=== PATIENT | male | born 1950 | race Caucasian/White ===

== ENCOUNTER 2024-12-31 20:53 | Emergency (ER) | payer MEDICARE, OTHER, SELFPAY ==
[2024-12-31 21:02] VITALS: BP 157/90
--- NOTE | 2024-12-31 21:29 | ED.GENMED ---
History of Present Illness
General
Chief Complaint: Allergic Reaction
Source: patient
Exam Limitations: none
Time Seen by Provider: 12/31/24 21:20
History of Present Illness
History of Present Illness:
74-year-old male presents with a rash in the left arm right back and left leg that he just noticed today. It does not itch or hurt. He describes it as small red dots. No fevers cough shortness of breath nausea vomiting. No other complaints at
this time
Past History
Past History
ED Past Medical History: None
ED Past Surgical History: Other (Inguinal hernia repair)
Social History
Tobacco: Non-smoker
Alcohol: None
Drug: None
Personal:
Living: with family
Phy Exam
Physical Exam
Physical Exam:
General: Well-appearing male no acute respiratory distress
HEENT normocephalic atraumatic
Skin: Macular papular rash over the left forearm left posterior calf and right posterior back. This is nontender nonpruritic without fluctuance induration or drainage.
Extremities: No cyanosis or edema
Course
Vital Signs
Initial and Last Documented VS:
Initial Vital Signs
Pulse Resp BP Pulse Ox
98 18 157/90 100
12/31/24 21:02 12/31/24 21:02 12/31/24 21:02 12/31/24 21:02
Last Documented Vital Signs
Pulse Resp BP Pulse Ox
98 18 157/90 100
12/31/24 21:02 12/31/24 21:02 12/31/24 21:02 12/31/24 21:02
MDM/Problems Addressed
Differential Diagnosis Includes:
Rash. Likely allergy mediated versus insect bite. No evidence of underlying abscess. Not consistent with shingles. Recommend antihistamines. He will take Benadryl here and take it at home. Will prescribe prednisone for him as well. No
indication for any further intervention
*Critical Care Note
Total Time (30-74mins, 75-104mins- exclusive of procedures): Not Applicable
ED Attending Note
-
Portions of this chart may have been created with voice recognition software.� Occasional wrong word or��sound alike� substitutions may have occurred due to the inherent limitations of voice recognition software.
Discharge Plan
Departure
Patient Disposition: Home (Routine Discharge)
Date of Disposition: 12/31/24
Time of Disposition: 21:31
Patient with high blood pressure during this ER visit?: No
Discharge Problem:
Rash
Instructions: Hives (DC)
Prescriptions:
New
prednisone 20 mg tablet
40 mg PO DAILY Qty: 6 0RF
No Action
benzonatate 100 MG capsule
100 mg PO TIDPRN PRN (Reason: cough) Qty: 14 0RF
Referrals:
Paul Quiñones MD [Family Provider] -
Activity Restrictions/Additional Instructions:
Continue with Benadryl. Use prednisone as directed. Return if worse otherwise follow-up with your doctor
Interventions
Interventions:
*Risk Screen - Suicide Last Done: 12/31/24 21:02
*General Assessment Last Done: 12/31/24 21:02
*Neglect/Abuse Screening Last Done: 12/31/24 21:02
Discharge Date and Time
Print Language: MARTINIQUAIS
[2024-12-31] MEDS: BENADRYL 25 MG PO (21:36)
== END 2024-12-31 21:45 | disposition home or self-care (01) ==
LOC: EMR 20:53
PROVIDERS: EMERGENCY PHYSICIAN Emergency Medicine; FAMILY PHYSICIAN Internal Medicine
DX: R21 Rash and other nonspecific skin eruption (principal)
CPT/HCPCS: 99282